=== PATIENT | male | born 1990 | race Caucasian/White ===

== ENCOUNTER 2022-01-27 05:53 | Emergency (ER) | payer OTHER ==
[2022-01-27] MEDS ORDERED: ACETAMINOPHEN 1000 MG/100 ML BAG IVPB ONE (06:12)
[2022-01-27] MEDS ORDERED: ONDANSETRON 4 MG/2 ML VIAL IVPUSH ONE (06:12)
[2022-01-27] MEDS ORDERED: LACTATED RINGERS SOLUTION 1000 ML INFUS.BAG IV ONE (06:12)
[2022-01-27 06:26] VITALS: BP 136/87; PULSE 79; RESP 16; TEMP 98.1; BMI 28.1
[2022-01-27 06:39] LABS: HEMATOCRIT 43.8 % (35.4-49); HEMOGLOBIN 15.1 GM/dL (11.7-16.9); MCH 29.5 pg (25.7-33.7); MCHC 34.6 g/dl (32.0-35.9); MEAN CELL VOLUME 85.3 fl (80-96); MEAN PLT VOLUME 7.9 fl (7.5-11.1); PLATELET COUNT 235 10^3/uL (134-434); RBC 5.13 M/mm3 (4.00-5.60); RDW 13.6 % (11.9-15.9); WHITE BLOOD COUNT 10.1 K/mm3 (4.0-10.0)
[2022-01-27 06:58] LABS: CHLORIDE 108 mmol/L (98-107); SODIUM 133 mmol/L (136-145)
[2022-01-27 07:01] LABS: ALBUMIN 4.2 g/dl (3.4-5.0); BLOOD UREA NITROGEN 19.1 mg/dL (7-18); CALCIUM 8.8 mg/dL (8.5-10.1); CO2 23 mmol/L (21-32); GLUCOSE,RANDOM 105 mg/dL (74-106); LIPASE 17 U/L (73-393)
[2022-01-27 07:04] LABS: CREATININE 1.2 mg/dL (0.55-1.3)
[2022-01-27 07:05] LABS: BILIRUBIN,TOTAL 0.5 mg/dL (0.2-1)
[2022-01-27 07:06] LABS: TOT PROT 8.7 g/dl (6.4-8.2)
[2022-01-27 07:07] LABS: ALK PHOS 73 U/L (45-117)
[2022-01-27 07:18] LABS: ANION GAP 2 MMOL/L (8-16); SGOT/AST 136 U/L (15-37); SGPT/ALT 54 U/L (13-61)
[2022-01-27 08:03] LABS: BLOOD UREA NITROGEN 18.3 mg/dL (7-18)
[2022-01-27 08:06] LABS: CREATININE 1.1 mg/dL (0.55-1.3)
[2022-01-27 08:07] LABS: BILIRUBIN,TOTAL 0.7 mg/dL (0.2-1); TOT PROT 7.4 g/dl (6.4-8.2)
[2022-01-27 08:37] LABS: EPI CELLS 2 /uL (0-25.1); HYALINE CASTS 0 /uL (0-3.1); PH,URINE 5.5 (5.0-8.0); URINE APPEARANCE CLOUDY; URINE BACTERIA 2 /uL (0-1359); URINE BILIRUBIN NEGATIVE (NEGATIVE); URINE COLOR YELLOW; URINE GLUCOSE (UA) NEGATIVE (NEGATIVE); URINE KETONE NEGATIVE (NEGATIVE); URINE LEUK ESTERASE NEGATIVE (NEGATIVE); URINE NITRITE NEGATIVE (NEGATIVE); URINE PROTEIN 1+ (NEGATIVE); URINE RBC 270 /uL (0-23.9); URINE UROBILINOGEN 0.2 mg/dL (0.2-1.0); URINE WBC 12 /uL (0-25.8)
[2022-01-27 08:44] LABS: ANISOCYTOSIS 0; HELMET CELLS 0; HOWELL-JOLLY BODIES 0; MACROCYTOSIS 0; OVALOCYTE 0; ROULEAU 0; SICKELED CELLS 0; TARGET CELLS 0; TEAR DROP CELLS 0; TOXIC GRANULATION 0
[2022-01-27] MEDS ORDERED: KETOROLAC TROMETHAMINE 15 MG/ML VIAL ONE (09:16)
[2022-01-27] MEDS ORDERED: KETOROLAC TROMETHAMINE 15 MG/ML VIAL IVPUSH ONE (09:16)
== END 2022-01-27 09:32 | disposition home or self-care (01) ==
LOC: JER 05:53
PROC: 3E033GC Introduction of Other Therapeutic Substance into Peripheral Vein, Percutaneous Approach (ICD-10-PCS; principal; 2022-01-27)
DX: N20.0 Calculus of kidney (principal)
CPT/HCPCS: 36415; 74177-TC; 76705-TC; 80053; 81003; 82962; 83690; 85025; 87086; 99285-25; Q9967